=== PATIENT | female | born 1935 | race African-American/Black ===

== ENCOUNTER 2024-01-09 21:20 | Inpatient (IN) | payer MEDICARE, OTHER ==
[~2024-01-09] VITALS: Ht 172.7 cm; Wt 61.7 kg
[2024-01-09 21:20] VITALS: BP 158/85; PULSE 64; RESP 20; TEMP 98
[~2024-01-09 21:20] MED LIST: AMLO10TA4 MT; ASPI-1406 MT; ATOR10TA69 PO; LORA5SOL33 PO
[2024-01-09] MEDS ORDERED: ACETAMINOPHEN 325MG TABLET PO PRN (22:45)
[2024-01-09] MEDS ORDERED: GUAIFENESIN 200MG/10ML SUGAR FREE UDC PO PRN (22:45)
[2024-01-09] MEDS ORDERED: IPRATROPIUM/ALBUTEROL 0.5-3(2.5)MG/3ML NEB HHN PRN (22:45)
[2024-01-09] MEDS ORDERED: ONDANSETRON HCL 4MG/2ML INJ IV PRN (22:45)
[2024-01-09] MEDS ORDERED: NITROGLYCERIN 0.4MG TABLET SL SL PRN (22:45)
[2024-01-09] MEDS ORDERED: DOCUSATE SODIUM 100MG CAPSULE PO PRN (22:45)
[2024-01-09] MEDS: DEXT 5%/LACTATED RINGERS 1,000 ML IV SCH (22:45)
[2024-01-10 06:57] LABS: BASOPHILS % 0.4 % (0.0-2.0); EOSINOPHILS % 1.4 % (0.0-5.0); HEMOGLOBIN. 10.4 g/dL (12.0-16.0); LYMPHOCYTES % 21.2 % (20.0-50.0); MEAN CORPUSCULAR HEMOGLOBIN 28.4 pg (28.0-32.0); MEAN CORPUSCULAR HGB CONC 32.6 g/dL (31.0-37.0); MEAN CORPUSCULAR VOLUME 87.2 fL (81.0-99.0); MEAN PLATELET VOLUME 10.7 fl (7.4-10.4); MONOCYTES % 3.9 % (2.0-8.0); NEUTROPHILS % 73.1 % (40.0-76.0); RED BLOOD CELL COUNT 3.68 mill/uL (4.2-5.4); RED CELL DISTRIBUTION WIDTH 16.9 % (11.6-14.6); WHITE BLOOD COUNT 5.9 x1000/uL (4.5-11.0)
[2024-01-10 07:18] LABS: CARBON DIOXIDE 25 mEq/L (21-32); CHLORIDE 112 mEq/L (98-107); SODIUM 143 mEq/L (136-145)
[2024-01-10 07:19] LABS: CALCIUM 9.5 mg/dL (8.7-10.4)
[2024-01-10 07:24] LABS: CREATININE 0.9 mg/dL (0.6-1.0); GLUCOSE 101 mg/dL (70-105); UREA NITROGEN BLOOD 13 mg/dL (9-23)
[2024-01-10 07:25] LABS: ALANINE AMINOTRANSFERASE 36 IU/L (10-49)
[2024-01-10 07:26] LABS: ALBUMIN 3.4 g/dL (3.2-4.8); ASPARTATE AMINOTRANSFERASE 39 IU/L (<34); BILIRUBIN TOTAL 0.3 mg/dL (0.1-1.0); PREALBUMIN 13.5 mg/dl (10.0-40.0); PROTEIN TOTAL 6.2 g/dL (6.0-8.3)
[2024-01-10 07:40] LABS: DIFFERENTIAL COMMENT 1
[2024-01-10 07:41] LABS: PLATELET 41 x1000/uL (130-400)
[2024-01-10 08:00] VITALS: BP 152/66; PULSE 60; RESP 19; TEMP 96.4
[2024-01-10] MEDS ORDERED: MAGNESIUM/ALUMINUM HYDROXIDE/SIMETHICONE 30ML UDC PO PRN (09:00)
[2024-01-10] MEDS: FAMOTIDINE 20MG TABLET PO SCH (09:00)
[2024-01-10] MEDS: ZINC SULFATE 220 MG ( 50 ) CAPSULE PO SCH (09:00)
[2024-01-10] MEDS ORDERED: ENOXAPARIN 30MG/0.3ML SYR SUBCUT SCH (09:00)
[2024-01-10] MEDS ORDERED: ASPIRIN 81MG TABLET PO SCH (09:00)
[2024-01-10] MEDS: ASCORBIC ACID 500 MG TABLET PO SCH (09:00)
[2024-01-10 11:39] LABS: AMMONIA 19 uMol/L (<32)
[2024-01-10 20:00] VITALS: BP 154/76; PULSE 60; RESP 18; TEMP 97.1
[2024-01-11 07:16] LABS: BASOPHILS % 0.1 % (0.0-2.0); EOSINOPHILS % 1.2 % (0.0-5.0); HEMATOCRIT. 31.7 % (36.0-48.0); LYMPHOCYTES % 33.5 % (20.0-50.0); MEAN CORPUSCULAR HEMOGLOBIN 27.6 pg (28.0-32.0); MEAN CORPUSCULAR HGB CONC 31.7 g/dL (31.0-37.0); MONOCYTES % 5.6 % (2.0-8.0); NEUTROPHILS % 59.6 % (40.0-76.0); RED BLOOD CELL COUNT 3.64 mill/uL (4.2-5.4); RED CELL DISTRIBUTION WIDTH 16.4 % (11.6-14.6); WHITE BLOOD COUNT 3.8 x1000/uL (4.5-11.0)
[2024-01-11 07:23] LABS: CARBON DIOXIDE 27 mEq/L (21-32); CHLORIDE 113 mEq/L (98-107); POTASSIUM 3.9 mEq/L (3.5-5.1); SODIUM 145 mEq/L (136-145)
[2024-01-11 07:24] LABS: CALCIUM 9.5 mg/dL (8.7-10.4)
[2024-01-11 07:28] LABS: IRON 69 ug/dL (50-170)
[2024-01-11 07:29] LABS: CREATININE 1.1 mg/dL (0.6-1.0); GLUCOSE 67 mg/dL (70-105); PARTIAL THROMBOPLASTIN TIME 33.2 sec (23.4-31.0); PROTEIN TOTAL 5.6 g/dL (6.0-8.3); PROTHROMBIN TIME 10.7 sec (9.6-11.0); UREA NITROGEN BLOOD 17 mg/dL (9-23)
[2024-01-11 07:30] LABS: ALANINE AMINOTRANSFERASE 31 IU/L (10-49)
[2024-01-11 07:31] LABS: ALBUMIN 3.2 g/dL (3.2-4.8); ASPARTATE AMINOTRANSFERASE 32 IU/L (<34); BILIRUBIN TOTAL 0.3 mg/dL (0.1-1.0); TOTAL IRON BINDING CAPACITY 227 ug/dl (250-425)
[2024-01-11 07:32] LABS: THYROID STIMULATING HORMONE 2.14 uIU/mL (0.55-4.78); VITAMIN B12 SERUM 840 pg/mL (211-911)
[2024-01-11 07:33] LABS: FERRITIN 282 ng/mL (10-291); FOLIC ACID (FOLATE) SERUM 3.81 ng/mL (>5.38)
[2024-01-11 08:00] VITALS: BP 136/64; PULSE 51; RESP 14; TEMP 97
[2024-01-11 09:33] LABS: DIFFERENTIAL COMMENT 1
[2024-01-11] MEDS: FOLIC ACID 1MG TABLET PO SCH (12:02)
[2024-01-11] MEDS: LACTULOSE 20G/30ML UDC PO SCH (16:38)
[2024-01-11 20:00] VITALS: BP 141/76; PULSE 58; RESP 16; TEMP 97
[2024-01-12 08:00] VITALS: BP 111/64; PULSE 55; RESP 17; TEMP 96.8
[2024-01-12 09:06] LABS: ANTI-NUCLEAR ANTIBODIES DIRECT Negative (Negative); VITAMIN D 25-OH 26.1 ng/mL (30.0-100.0)
[2024-01-12] MEDS: MEMANTINE HCL 5MG TABLET PO SCH (12:44)
[2024-01-12 20:00] VITALS: BP 147/75; PULSE 58; RESP 18; TEMP 97
[2024-01-13 07:43] LABS: POTASSIUM 4.1 mEq/L (3.5-5.1)
[2024-01-13 07:44] LABS: BASOPHILS % 0.2 % (0.0-2.0); CALCIUM 9.9 mg/dL (8.7-10.4); EOSINOPHILS % 0.7 % (0.0-5.0); HEMATOCRIT. 31.1 % (36.0-48.0); HEMOGLOBIN. 9.9 g/dL (12.0-16.0); LYMPHOCYTES % 16.8 % (20.0-50.0); MEAN CORPUSCULAR HEMOGLOBIN 27.9 pg (28.0-32.0); MEAN CORPUSCULAR HGB CONC 31.9 g/dL (31.0-37.0); MEAN CORPUSCULAR VOLUME 87.6 fL (81.0-99.0); MONOCYTES % 4.8 % (2.0-8.0); NEUTROPHILS % 77.5 % (40.0-76.0); RED BLOOD CELL COUNT 3.55 mill/uL (4.2-5.4); RED CELL DISTRIBUTION WIDTH 16.5 % (11.6-14.6); WHITE BLOOD COUNT 3.8 x1000/uL (4.5-11.0)
[2024-01-13 07:49] LABS: CREATININE 1.1 mg/dL (0.6-1.0)
[2024-01-13 08:00] VITALS: BP 134/54; PULSE 50; RESP 17; TEMP 96.2
[2024-01-13 08:16] LABS: DIFFERENTIAL COMMENT 1
[2024-01-13 08:47] LABS: PLATELET 35 x1000/uL (130-400)
[2024-01-13 08:48] LABS: MEAN PLATELET VOLUME 12.4 fl (7.4-10.4)
[2024-01-13 17:30] LABS: CLARITY URINE CLEAR (CLEAR); COLOR URINE YELLOW (YELLOW); GLUCOSE URINE NEGATIVE (NEGATIVE); KETONES URINE NEGATIVE (NEGATIVE); LEUKOCYTE ESTERASE URINE TRACE (NEGATIVE); NITRITE URINE NEGATIVE (NEGATIVE); OCCULT BLOOD URINE NEGATIVE (NEGATIVE); PROTEIN URINE TRACE (NEGATIVE); SPECIFIC GRAVITY URINE 1.019 (1.005-1.030)
[2024-01-13] MEDS: ERGOCALCIFEROL 50000UNITS CAPSULE PO SCH (17:39)
[2024-01-13] MEDS: LACTULOSE 20G/30ML UDC PO NR (18:00)
[2024-01-13 18:13] LABS: BACTERIA URINE 1+; SQUAMOUS EPITHELIAL CELL URINE FEW /lpf (RARE/1+)
[2024-01-13 18:14] LABS: RBC URINE 0-2 /hpf (0-2); WBC URINE 0-2 /hpf (0-2)
[2024-01-13 20:00] VITALS: BP 146/69; PULSE 60; RESP 18; TEMP 96.5
[2024-01-14 08:00] VITALS: BP 159/89; PULSE 58; RESP 17; TEMP 97.3
[2024-01-14] MEDS ORDERED: LACTULOSE 20G/30ML UDC PO PRN (08:00)
[2024-01-14] MEDS: CLONIDINE 0.1MG TABLET PO PRN (08:55)
[2024-01-14 19:55] LABS: PLATELET 34 x1000/uL (130-400)
[2024-01-14 20:00] VITALS: BP 153/66; PULSE 51; RESP 18; TEMP 97
[2024-01-15 08:00] VITALS: BP 132/58; PULSE 53; RESP 16; TEMP 96.3
[2024-01-15 20:00] VITALS: BP 150/78; PULSE 53; RESP 18; TEMP 90
[2024-01-16 06:49] LABS: CHLORIDE 111 mEq/L (98-107); POTASSIUM 4.8 mEq/L (3.5-5.1); SODIUM 145 mEq/L (136-145)
[2024-01-16 06:50] LABS: CALCIUM 9.7 mg/dL (8.7-10.4); CARBON DIOXIDE 29 mEq/L (21-32)
[2024-01-16 06:55] LABS: CREATININE 0.9 mg/dL (0.6-1.0); GLUCOSE 84 mg/dL (70-105)
[2024-01-16 06:56] LABS: UREA NITROGEN BLOOD 32 mg/dL (9-23)
[2024-01-16 06:57] LABS: BASOPHILS % 0.1 % (0.0-2.0); HEMATOCRIT. 32.1 % (36.0-48.0); HEMOGLOBIN. 10.1 g/dL (12.0-16.0); LYMPHOCYTES % 17.5 % (20.0-50.0); MEAN CORPUSCULAR HEMOGLOBIN 27.4 pg (28.0-32.0); MEAN CORPUSCULAR HGB CONC 31.5 g/dL (31.0-37.0); MEAN CORPUSCULAR VOLUME 86.8 fL (81.0-99.0); MONOCYTES % 4.9 % (2.0-8.0); NEUTROPHILS % 76.5 % (40.0-76.0); RED BLOOD CELL COUNT 3.69 mill/uL (4.2-5.4); RED CELL DISTRIBUTION WIDTH 16.7 % (11.6-14.6); WHITE BLOOD COUNT 3.8 x1000/uL (4.5-11.0)
[2024-01-16 08:00] VITALS: BP 125/65; PULSE 66; RESP 18; TEMP 97.2
[2024-01-16 09:17] LABS: PLATELET 29 x1000/uL (130-400)
[2024-01-16 09:18] LABS: DIFFERENTIAL COMMENT 1
[2024-01-16] MEDS: DEXAMETHASONE 4MG TABLET PO SCH (13:56)
[2024-01-16 20:00] VITALS: BP 134/80; PULSE 58; RESP 20; TEMP 96.6
[2024-01-16 20:30] VITALS: BP 134/80; PULSE 58; TEMP 96.5; O2SAT 95
== END 2024-01-16 20:50 | disposition short-term general hospital (02) | DRG 70 ==
PROVIDERS: ADMIT Physical Medicine & Rehabilitation Spinal Cord Injury Medicine; ATTEND Internal Medicine
DX: G93.41 Metabolic encephalopathy (principal); A41.9 Sepsis, unspecified organism; N17.0 Acute kidney failure with tubular necrosis; I21.4 Non-ST elevation (NSTEMI) myocardial infarction; I13.0 Hypertensive heart and chronic kidney disease with heart failure and stage 1 through stage 4 chronic kidney disease, or unspecified chronic kidney disease; N39.0 Urinary tract infection, site not specified; D61.818 Other pancytopenia; N17.9 Acute kidney failure, unspecified; F03.93 Unspecified dementia, unspecified severity, with mood disturbance; D69.3 Immune thrombocytopenic purpura; I50.22 Chronic systolic (congestive) heart failure; F03.90 Unspecified dementia, unspecified severity, without behavioral disturbance, psychotic disturbance, mood disturbance, and anxiety; I50.9 Heart failure, unspecified; I25.10 Atherosclerotic heart disease of native coronary artery without angina pectoris; J98.4 Other disorders of lung; M81.0 Age-related osteoporosis without current pathological fracture; N18.9 Chronic kidney disease, unspecified; E53.8 Deficiency of other specified B group vitamins; E55.9 Vitamin D deficiency, unspecified; E78.00 Pure hypercholesterolemia, unspecified; R32 Unspecified urinary incontinence; R62.7 Adult failure to thrive; M62.50 Muscle wasting and atrophy, not elsewhere classified, unspecified site; R26.2 Difficulty in walking, not elsewhere classified; R41.89 Other symptoms and signs involving cognitive functions and awareness; R53.81 Other malaise; R91.8 Other nonspecific abnormal finding of lung field; Z86.73 Personal history of transient ischemic attack (TIA), and cerebral infarction without residual deficits; Z91.81 History of falling; I25.2 Old myocardial infarction
CPT/HCPCS: 36415; 76705; 80048; 80053; 81003; 82140; 82306; 82607; 82728; 82746; 83036; 83540; 83550; 84134; 84443; 85025; 85384; 86038; 86705; 92523; 92610; 97110; 97112; 97150; 97162; 97166; 97530; 97535; A4565; A6261; J7121; J8540

== ENCOUNTER 2024-01-16 22:06 | Inpatient (IN) | payer MEDICARE, OTHER ==
[~2024-01-16] VITALS: Ht 182.9 cm; Wt 56.7 kg
[2024-01-16] MEDS ORDERED: CLONIDINE 0.1MG TABLET PO PRN (23:30)
[2024-01-16] MEDS ORDERED: DOCUSATE SODIUM 100MG CAPSULE PO PRN (23:30)
[2024-01-16] MEDS ORDERED: GUAIFENESIN 200MG/10ML SUGAR FREE UDC PO PRN (23:30)
[2024-01-16] MEDS ORDERED: ONDANSETRON HCL 4MG/2ML INJ IV PRN (23:30)
[2024-01-16] MEDS ORDERED: ACETAMINOPHEN 325MG TABLET PO PRN ×2 (23:30)
[2024-01-17] MEDS ORDERED: IPRATROPIUM/ALBUTEROL 0.5-3(2.5)MG/3ML NEB HHN PRN
[2024-01-17] MEDS: DEXT 5%/0.45% NACL 1000ML 1,000 ML IV SCH (00:43)
[2024-01-17 01:54] VITALS: BP 138/88; PULSE 58; RESP 18; TEMP 98.6
[2024-01-17 04:00] VITALS: BP 127/73; PULSE 58; RESP 18; TEMP 97.2
[2024-01-17 07:43] LABS: HEMATOCRIT 30.1 % (36.0-48.0); HEMOGLOBIN 9.6 g/dL (12.0-16.0); MEAN CORPUSCULAR HEMOGLOBIN 27.9 pg (28.0-32.0); MEAN CORPUSCULAR VOLUME 87.4 fL (81.0-99.0); RED BLOOD CELL COUNT 3.44 mill/uL (4.2-5.4); WHITE BLOOD COUNT 6.4 x1000/uL (4.5-11.0)
[2024-01-17 07:49] LABS: CARBON DIOXIDE 26 mEq/L (21-32); CHLORIDE 113 mEq/L (98-107); POTASSIUM 4.7 mEq/L (3.5-5.1); SODIUM 145 mEq/L (136-145)
[2024-01-17 07:50] LABS: CALCIUM 9.6 mg/dL (8.7-10.4)
[2024-01-17 07:51] LABS: CREATINE KINASE MB FRACTION 2.6 ng/mL (0.5-3.6)
[2024-01-17 07:55] LABS: GLUCOSE 131 mg/dL (70-105); UREA NITROGEN BLOOD 40 mg/dL (9-23)
[2024-01-17 08:01] LABS: TROPONIN I HIGH SENSITIVITY 68 ng/L (3.0-34)
[2024-01-17 08:18] VITALS: BP 120/60; PULSE 56; RESP 18; TEMP 96.6
[2024-01-17] MEDS ORDERED: ENOXAPARIN 40MG/0.4ML SYR SUBCUT SCH (09:00)
[2024-01-17] MEDS: ASPIRIN 81MG EC TABLET PO SCH (09:00)
[2024-01-17] MEDS: AMLODIPINE 10MG TABLET PO SCH (09:00)
[2024-01-17 12:10] VITALS: BP 99/50; PULSE 52; RESP 18; TEMP 97.8
[2024-01-17] MEDS: ERGOCALCIFEROL 50000UNITS CAPSULE PO SCH (12:30)
[2024-01-17 16:06] VITALS: BP 116/68; PULSE 48; RESP 20; TEMP 97.8
[2024-01-17 16:57] LABS: CREATINE KINASE MB FRACTION 2.5 ng/mL (0.5-3.6)
[2024-01-17 20:00] VITALS: BP 124/68; PULSE 55; RESP 21; TEMP 96.8
[2024-01-17] MEDS: ATORVASTATIN CALCIUM 10MG TABLET PO SCH (21:30)
[2024-01-18] VITALS: BP 152/60; PULSE 60; RESP 20; TEMP 98
[2024-01-18 04:00] VITALS: BP 157/69; PULSE 61; RESP 18; TEMP 96.2
[2024-01-18 08:00] VITALS: BP 110/53; PULSE 50; RESP 20; TEMP 99
[2024-01-18] MEDS: FOLIC ACID 1MG TABLET PO SCH (08:55)
[2024-01-18 11:14] LABS: AMMONIA < 17 uMol/L (<32)
[2024-01-18 11:18] LABS: T4 FREE 1.1 ng/dL (0.89-1.76); THYROID STIMULATING HORMONE 4.55 uIU/mL (0.55-4.78)
[2024-01-18 11:35] LABS: VITAMIN B12 SERUM 841 pg/mL (211-911)
[2024-01-18 11:39] LABS: FOLIC ACID (FOLATE) SERUM 5.42 ng/mL (>5.38)
[2024-01-18 12:00] VITALS: BP 101/40; PULSE 54; RESP 20; TEMP 98.1
[2024-01-18 16:00] VITALS: BP 132/54; PULSE 64; RESP 18; TEMP 97.5
[2024-01-18 20:00] VITALS: BP 108/53; PULSE 57; RESP 18; TEMP 97.2
[2024-01-19] VITALS: BP 140/66; PULSE 64; RESP 20; TEMP 97.4
[2024-01-19 04:00] VITALS: BP 110/80; PULSE 65; RESP 17; RESP 18; TEMP 97.2
[2024-01-19 08:00] VITALS: BP 134/69; PULSE 57; RESP 20; TEMP 97.1
[2024-01-19] MEDS: THIAMINE HCL 100MG TABLET PO SCH (09:12)
[2024-01-19] MEDS: PIPERACILLIN/TAZO 3.375G/50ML 50 ML IV SCH (09:37)
[2024-01-19 11:58] LABS: CARBON DIOXIDE 27 mEq/L (21-32); CHLORIDE 113 mEq/L (98-107); POTASSIUM 4.7 mEq/L (3.5-5.1); SODIUM 145 mEq/L (136-145)
[2024-01-19 11:59] LABS: CALCIUM 9.3 mg/dL (8.7-10.4)
[2024-01-19 12:00] VITALS: BP 106/59; PULSE 68; RESP 20; TEMP 97.2
[2024-01-19 12:01] LABS: BASOPHILS % 0.3 % (0.0-2.0); EOSINOPHILS % 0.6 % (0.0-5.0); HEMATOCRIT. 28.1 % (36.0-48.0); HEMOGLOBIN. 9.1 g/dL (12.0-16.0); LYMPHOCYTES % 14.7 % (20.0-50.0); MEAN CORPUSCULAR HEMOGLOBIN 28.2 pg (28.0-32.0); MEAN CORPUSCULAR HGB CONC 32.3 g/dL (31.0-37.0); MEAN CORPUSCULAR VOLUME 87.2 fL (81.0-99.0); MONOCYTES % 4.6 % (2.0-8.0); NEUTROPHILS % 79.8 % (40.0-76.0); RED BLOOD CELL COUNT 3.22 mill/uL (4.2-5.4); RED CELL DISTRIBUTION WIDTH 16.7 % (11.6-14.6); WHITE BLOOD COUNT 4.7 x1000/uL (4.5-11.0)
[2024-01-19 12:03] LABS: DIFFERENTIAL COMMENT 1; GLUCOSE 98 mg/dL (70-105)
[2024-01-19 12:04] LABS: ALANINE AMINOTRANSFERASE 75 IU/L (10-49); UREA NITROGEN BLOOD 43 mg/dL (9-23)
[2024-01-19 12:05] LABS: ASPARTATE AMINOTRANSFERASE 73 IU/L (<34)
[2024-01-19 12:06] LABS: BILIRUBIN TOTAL 0.2 mg/dL (0.1-1.0); PROTEIN TOTAL 5.1 g/dL (6.0-8.3)
[2024-01-19 12:07] LABS: ADD RBC MORPHOLOGY YES
[2024-01-19 14:31] LABS: ANISOCYTOSIS 1+; PLATELET 42 x1000/uL (130-400); PLATELET ESTIMATE MARKEDLY DECREASED
[2024-01-19 16:00] VITALS: BP 108/45; PULSE 57; RESP 20; TEMP 97.3
[2024-01-19 20:00] VITALS: BP 122/59; PULSE 63; RESP 17; TEMP 98
[2024-01-20] VITALS: BP 108/65; PULSE 61; RESP 16; TEMP 98
[2024-01-20 04:00] VITALS: BP 132/74; PULSE 70; RESP 18; TEMP 97.8
[2024-01-20 08:00] VITALS: BP 100/62; PULSE 59; RESP 20; TEMP 96
[2024-01-20 12:00] VITALS: BP 90/57; PULSE 62; RESP 18; TEMP 97.4
[2024-01-20 16:00] VITALS: BP 131/65; PULSE 70; RESP 18; TEMP 98
[2024-01-20 20:00] VITALS: BP 124/58; PULSE 66; RESP 18; TEMP 97.8
[2024-01-20] MEDS: LEVOFLOXACIN 500MG PREMIX 100 ML IV SCH (20:49)
[2024-01-21] VITALS (7 sets, daily range): BP systolic 108–155; BP diastolic 53–65; PULSE 61–80; RESP 16–20; TEMP 97.6–98.9
[2024-01-21 06:46] LABS: CARBON DIOXIDE 28 mEq/L (21-32); CHLORIDE 112 mEq/L (98-107); HEMATOCRIT 27.2 % (36.0-48.0); HEMOGLOBIN 8.7 g/dL (12.0-16.0); MEAN CORPUSCULAR HGB CONC 32.1 g/dL (31.0-37.0); MEAN CORPUSCULAR VOLUME 87.2 fL (81.0-99.0); POTASSIUM 4.9 mEq/L (3.5-5.1); RED BLOOD CELL COUNT 3.12 mill/uL (4.2-5.4); RED CELL DISTRIBUTION WIDTH 16.7 % (11.6-14.6); SODIUM 146 mEq/L (136-145); WHITE BLOOD COUNT 4.7 x1000/uL (4.5-11.0)
[2024-01-21 06:47] LABS: CALCIUM 9.1 mg/dL (8.7-10.4)
[2024-01-21 06:52] LABS: GLUCOSE 127 mg/dL (70-105); UREA NITROGEN BLOOD 37 mg/dL (9-23)
[2024-01-21 08:07] LABS: PLATELET 36 x1000/uL (130-400)
[2024-01-21] MEDS: AMLODIPINE 5MG TABLET PO SCH (09:24)
[2024-01-21] MEDS: LEVOFLOXACIN 250MG PREMIX 50 ML IV SCH (12:41)
[2024-01-22] VITALS: BP 160/66; PULSE 61; RESP 18; TEMP 97.9
[2024-01-22 04:00] VITALS: BP 151/62; PULSE 63; RESP 20; TEMP 98.2
[2024-01-22 06:52] LABS: HEMATOCRIT 28.3 % (36.0-48.0); HEMOGLOBIN 8.9 g/dL (12.0-16.0); MEAN CORPUSCULAR HEMOGLOBIN 27.6 pg (28.0-32.0); MEAN CORPUSCULAR HGB CONC 31.4 g/dL (31.0-37.0); MEAN CORPUSCULAR VOLUME 87.8 fL (81.0-99.0); RED BLOOD CELL COUNT 3.23 mill/uL (4.2-5.4); RED CELL DISTRIBUTION WIDTH 16.7 % (11.6-14.6); WHITE BLOOD COUNT 4.4 x1000/uL (4.5-11.0)
[2024-01-22 06:56] LABS: CHLORIDE 112 mEq/L (98-107); POTASSIUM 5.2 mEq/L (3.5-5.1); SODIUM 146 mEq/L (136-145)
[2024-01-22 06:57] LABS: CALCIUM 9.4 mg/dL (8.7-10.4); CARBON DIOXIDE 31 mEq/L (21-32)
[2024-01-22 07:02] LABS: CREATININE 0.8 mg/dL (0.6-1.0); GLUCOSE 111 mg/dL (70-105); UREA NITROGEN BLOOD 36 mg/dL (9-23)
[2024-01-22 08:00] VITALS: BP 169/83; PULSE 60; RESP 18; TEMP 97
[2024-01-22 12:00] VITALS: BP 125/71; PULSE 59; RESP 18; TEMP 96
[2024-01-22 14:29] LABS: PLATELET 35 x1000/uL (130-400)
[2024-01-22 16:00] VITALS: BP 136/70; PULSE 58; RESP 20; TEMP 97
[2024-01-22 20:00] VITALS: BP 127/68; PULSE 62; RESP 18; TEMP 97.4
[2024-01-22 20:20] LABS: HEMATOCRIT 26.7 % (36.0-48.0); HEMOGLOBIN 8.5 g/dL (12.0-16.0); MEAN CORPUSCULAR HEMOGLOBIN 27.8 pg (28.0-32.0); MEAN CORPUSCULAR HGB CONC 31.8 g/dL (31.0-37.0); MEAN CORPUSCULAR VOLUME 87.3 fL (81.0-99.0); RED BLOOD CELL COUNT 3.06 mill/uL (4.2-5.4); RED CELL DISTRIBUTION WIDTH 16.6 % (11.6-14.6); WHITE BLOOD COUNT 5.5 x1000/uL (4.5-11.0)
[2024-01-22 20:23] LABS: PLATELET 37 x1000/uL (130-400)
[2024-01-23] VITALS (7 sets, daily range): BP systolic 115–158; BP diastolic 64–115; PULSE 50–100; RESP 18–20; TEMP 96.4–97.8
[2024-01-23 08:05] LABS: CARBON DIOXIDE 28 mEq/L (21-32); CHLORIDE 111 mEq/L (98-107); POTASSIUM 5.6 mEq/L (3.5-5.1); SODIUM 145 mEq/L (136-145)
[2024-01-23 08:06] LABS: CALCIUM 9.4 mg/dL (8.7-10.4)
[2024-01-23 08:11] LABS: CREATININE 0.8 mg/dL (0.6-1.0); GLUCOSE 72 mg/dL (70-105); UREA NITROGEN BLOOD 29 mg/dL (9-23)
[2024-01-23] MEDS ORDERED: SODIUM POLYSTYRENE SULFONATE 15 G/60 ML BOT PO ONE (09:30)
[2024-01-23] MEDS: SODIUM ZIRCONIUM CYCLOSILICATE 10GM/PACKET PO NR ×2 (09:42→14:45)
[2024-01-23] MEDS ORDERED: FENTANYL CITRATE/PF 50MCG/ML 2ML VIAL ONE ×2 (13:05→13:19)
[2024-01-23] MEDS ORDERED: VERAPAMIL HCL 2.5 MG/1 ML 2ML VIAL IV ONE (13:05)
[2024-01-23] MEDS ORDERED: MIDAZOLAM HCL 2 MG/2 ML VIAL ONE ×2 (13:05→13:19)
[2024-01-23] MEDS ORDERED: IODIXANOL 320MG/ML 100 ML BOTTLE IV ONE ×2 (13:06→13:19)
[2024-01-23] MEDS ORDERED: LIDOCAINE HCL 1% 20ML VIAL ONE ×2 (13:06→13:19)
[2024-01-23] MEDS ORDERED: DIPHENHYDRAMINE 50MG/ML VIAL ONE (13:16)
[2024-01-23] MEDS ORDERED: HEPARIN 1000 UNITS/ML 10ML ONE (13:19)
[2024-01-23] MEDS: LEVOFLOXACIN 750MG PREMIX 150 ML IV SCH (13:31)
[2024-01-23 17:17] LABS: POTASSIUM 4.7 mEq/L (3.5-5.1)
[2024-01-24] VITALS: BP 133/54; PULSE 53; RESP 20; TEMP 96
[2024-01-24 04:00] VITALS: BP 129/67; PULSE 55; RESP 19; TEMP 96.2
[2024-01-24 07:59] LABS: CALCIUM 9.3 mg/dL (8.7-10.4); CARBON DIOXIDE 29 mEq/L (21-32); CHLORIDE 110 mEq/L (98-107); POTASSIUM 4.5 mEq/L (3.5-5.1); SODIUM 143 mEq/L (136-145)
[2024-01-24 08:00] VITALS: BP 129/74; PULSE 52; RESP 18; TEMP 97
[2024-01-24 08:04] LABS: CREATININE 0.7 mg/dL (0.6-1.0); GLUCOSE 114 mg/dL (70-105); UREA NITROGEN BLOOD 23 mg/dL (9-23)
[2024-01-24 08:44] LABS: HEMATOCRIT. 26.5 % (36.0-48.0); HEMOGLOBIN. 8.4 g/dL (12.0-16.0); MEAN CORPUSCULAR HEMOGLOBIN 27.6 pg (28.0-32.0); MEAN CORPUSCULAR HGB CONC 31.5 g/dL (31.0-37.0); MEAN CORPUSCULAR VOLUME 87.5 fL (81.0-99.0); MEAN PLATELET VOLUME 10.6 fl (7.4-10.4); RED BLOOD CELL COUNT 3.03 mill/uL (4.2-5.4); RED CELL DISTRIBUTION WIDTH 16.8 % (11.6-14.6); WHITE BLOOD COUNT 6.5 x1000/uL (4.5-11.0)
[2024-01-24 09:50] LABS: DIFFERENTIAL COMMENT 1; PLATELET 44 x1000/uL (130-400)
[2024-01-24 12:00] VITALS: BP 11/63; PULSE 64; RESP 18; TEMP 97.1
[2024-01-24 13:42] LABS: PLATELET ESTIMATE MARKEDLY DECREASED
[2024-01-24 13:43] LABS: ANISOCYTOSIS 1+
[2024-01-24 13:44] LABS: MICROCYTOSIS 1+
[2024-01-24 16:00] VITALS: BP 143/74; PULSE 59; RESP 18; TEMP 97
[2024-01-24 20:00] VITALS: BP 95/51; PULSE 61; RESP 20; TEMP 96.4
[2024-01-25] VITALS: BP 152/84; PULSE 59; RESP 21; TEMP 96.8
[2024-01-25 04:00] VITALS: BP 125/79; PULSE 61; RESP 20; TEMP 98.2
[2024-01-25 09:23] LABS: CHLORIDE 112 mEq/L (98-107); POTASSIUM 4.3 mEq/L (3.5-5.1); SODIUM 144 mEq/L (136-145)
[2024-01-25 09:24] LABS: CALCIUM 9.5 mg/dL (8.7-10.4); CARBON DIOXIDE 31 mEq/L (21-32)
[2024-01-25 09:25] LABS: HEMATOCRIT 26.1 % (36.0-48.0); HEMOGLOBIN 8.4 g/dL (12.0-16.0); MEAN CORPUSCULAR HEMOGLOBIN 27.9 pg (28.0-32.0); MEAN CORPUSCULAR HGB CONC 32.1 g/dL (31.0-37.0); PLATELET 55 x1000/uL (130-400); RED CELL DISTRIBUTION WIDTH 16.1 % (11.6-14.6); WHITE BLOOD COUNT 7.1 x1000/uL (4.5-11.0)
[2024-01-25 09:29] LABS: CREATININE 0.8 mg/dL (0.6-1.0); GLUCOSE 97 mg/dL (70-105); UREA NITROGEN BLOOD 24 mg/dL (9-23)
== END 2024-01-25 14:45 | DRG 91 ==
LOC: 8WST 22:06
PROVIDERS: ADMIT Internal Medicine; ATTEND Internal Medicine
PROC: 4A10X4Z Monitoring of Central Nervous Electrical Activity, External Approach (ICD-10-PCS; principal; 2024-01-21)
DX: G92.8 Other toxic encephalopathy (principal); E43 Unspecified severe protein-calorie malnutrition; I21.4 Non-ST elevation (NSTEMI) myocardial infarction; D61.818 Other pancytopenia; N17.9 Acute kidney failure, unspecified; I50.22 Chronic systolic (congestive) heart failure; N39.0 Urinary tract infection, site not specified; Z68.1 Body mass index [BMI] 19.9 or less, adult; E11.9 Type 2 diabetes mellitus without complications; E55.9 Vitamin D deficiency, unspecified; E53.8 Deficiency of other specified B group vitamins; F03.90 Unspecified dementia, unspecified severity, without behavioral disturbance, psychotic disturbance, mood disturbance, and anxiety; I11.0 Hypertensive heart disease with heart failure; D63.8 Anemia in other chronic diseases classified elsewhere; E87.5 Hyperkalemia; I07.1 Rheumatic tricuspid insufficiency; I25.10 Atherosclerotic heart disease of native coronary artery without angina pectoris; I27.20 Pulmonary hypertension, unspecified; Z86.73 Personal history of transient ischemic attack (TIA), and cerebral infarction without residual deficits
CPT/HCPCS: 36415; 70551; 71045; 80048; 80053; 82140; 82553; 82607; 82746; 83036; 84132; 84134; 84145; 84439; 84443; 84481; 84484; 85025; 85027; 92610; 93005; 97166; J1200; J1644; J1956; J2250; J2543; J3010; J3490; Q9967

== ENCOUNTER 2024-04-19 14:05 | Inpatient (IN) | payer MEDICARE, OTHER ==
[~2024-04-19] VITALS: Ht 165.1 cm; Wt 60.3 kg
[~2024-04-19 14:05] MED LIST changes: -AMLO10TA4 MT; +AMLO5TAB88 PO; +ASPI-1160 PO; -ASPI-1406 MT; +CLON0.1T PO; +ERGO200D PO; +FLUT1BLS12 IH; +FOLI-43 PO; -LORA5SOL33 PO; +THIA50TA12 PO
[2024-04-19 14:08] VITALS: O2SAT 100
[2024-04-19] MEDS: LACTATED RINGERS 1,000 ML IV ONE (14:15)
[2024-04-19 15:00] LABS: HEMATOCRIT. 27.6 % (36.0-48.0); HEMOGLOBIN. 8.2 g/dL (12.0-16.0); MEAN CORPUSCULAR HEMOGLOBIN 26.8 pg (28.0-32.0); MEAN CORPUSCULAR HGB CONC 29.8 g/dL (31.0-37.0); MEAN CORPUSCULAR VOLUME 89.7 fL (81.0-99.0); MEAN PLATELET VOLUME 11.1 fl (7.4-10.4); RED BLOOD CELL COUNT 3.07 mill/uL (4.2-5.4); RED CELL DISTRIBUTION WIDTH 19.5 % (11.6-14.6); WHITE BLOOD COUNT 8.2 x1000/uL (4.5-11.0)
[2024-04-19 15:11] LABS: INR 1.2; PROTHROMBIN TIME 13.5 sec (9.6-11.0)
[2024-04-19 15:21] LABS: DIFFERENTIAL COMMENT 1
[2024-04-19 15:24] LABS: CHLORIDE 125 mEq/L (98-107); SODIUM 151 mEq/L (136-145)
[2024-04-19 15:25] LABS: CARBON DIOXIDE 19 mEq/L (21-32)
[2024-04-19] MEDS: CEFTRIAXONE 1GM/50ML 50 ML IV ONE (15:26)
[2024-04-19] MEDS: AZITHROMYCIN 500MG/250ML 250 ML IV ONE (15:26)
[2024-04-19 15:29] LABS: PLATELET 23 x1000/uL (130-400)
[2024-04-19 15:30] LABS: CREATININE 1.4 mg/dL (0.6-1.0); GLUCOSE 103 mg/dL (70-105); UREA NITROGEN BLOOD 17 mg/dL (9-23)
[2024-04-19 15:32] LABS: LACTIC ACID 2.1 mmol/L (0.4-2.0)
[2024-04-19 15:35] LABS: TROPONIN I HIGH SENSITIVITY 119 ng/L (3.0-34)
[2024-04-19 16:25] LABS: ANISOCYTOSIS 1+; PLATELET ESTIMATE MARKEDLY DECREASED
[2024-04-19] MEDS: SODIUM CHLORIDE 0.9% 500 ML IV ONE (20:44)
[2024-04-19] MEDS ORDERED: NOREPINEPHRINE 8 MG in DEXT 5% WATER 242 ML IV PRN (22:15)
[2024-04-19] MEDS: NOREPINEPHRINE 8MG/250ML PMX 250 ML IV PRN (23:08)
[2024-04-20] VITALS (14 sets, daily range): BP systolic 50–150; BP diastolic 34–92; PULSE 50–72; RESP 20–21; TEMP 35.0028–35.028; O2SAT 100
[2024-04-20 00:10] LABS: BG CARBOXYHEMOGLOBIN 1.2 % (0.5-1.5); BG DEOXYHEMOGLOBIN 0.5 % (0.0-5.0); BG FRACTION INSPIRED OXYGEN 100; BG HCO3 ACT 17.4 mmol/L (21.0-28.0); BG METHEMOGLOBIN 0.1 % (0.5-1.5); BG OXYGEN SATURATION 99.5 % (94.0-98.0); BG OXYHEMOGLOBIN 98.2 % (94.0-98.0); BG PCO2 40.6 mmHg (32.0-45.0); BG PH 7.251 (7.350-7.450); BG PO2 213.2 mmHg (83.0-108.0); BG SAMPLE SITE LEFT RADIAL; BG TOTAL HEMOGLOBIN 7.5 g/dL (12.0-16.0); BG VENT MODE MASK - NRB
[2024-04-20] MEDS ORDERED: VASOPRESSIN 20 UNIT in SODIUM CHLORIDE 0.9% 99 ML IV STA (10:56)
[2024-04-20] MEDS ORDERED: ONDANSETRON HCL 4MG/2ML INJ IV PRN (11:30)
[2024-04-20] MEDS ORDERED: ACETAMINOPHEN 325MG TABLET PO PRN (11:30)
[2024-04-20] MEDS: VASOPRESSIN 20 UNIT in SODIUM CHLORIDE 0.9% 99 ML IV PRN (11:40)
[2024-04-20] MEDS: SODIUM CHLORIDE 0.9% 1,000 ML IV SCH (11:41)
[2024-04-20] MEDS ORDERED: VANCOMYCIN 750MG/250ML IV SCH (12:00)
[2024-04-20] MEDS: DEXTROSE 50% WATER 50ML SYRINGE IV PRN (13:53)
[2024-04-20] MEDS ORDERED: DEXTROSE 50% WATER 50ML SYRINGE IV PRN (14:00)
[2024-04-20] MEDS ORDERED: LORAZEPAM 2MG/ML INJ IV PRN (14:00)
[2024-04-20 14:22] LABS: BG BASE EXCESS -17.9 mmol/L (-2.0-3.0); BG CARBOXYHEMOGLOBIN 0.7 % (0.5-1.5); BG DEOXYHEMOGLOBIN 0.1 % (0.0-5.0); BG HCO3 ACT 11.9 mmol/L (21.0-28.0); BG OXYGEN SATURATION 99.9 % (94.0-98.0); BG OXYHEMOGLOBIN 99.2 % (94.0-98.0); BG PCO2 47.4 mmHg (32.0-45.0); BG PH 7.016 (7.350-7.450); BG PO2 297.6 mmHg (83.0-108.0); BG SAMPLE SITE LEFT RADIAL; BG TOTAL HEMOGLOBIN 7.4 g/dL (12.0-16.0); BG VENT MODE VENT - AC
[2024-04-20] MEDS ORDERED: VASOPRESSIN 20 UNIT in SODIUM CHLORIDE 0.9% 99 ML IV PRN (15:00)
[2024-04-20] MEDS ORDERED: NOREPINEPHRINE 32 MG in DEXT 5% WATER 218 ML IV PRN (15:00)
[2024-04-20] MEDS: MORPHINE SULFATE 250 MG in DEXT 5% WATER 225 ML IV PRN (15:29)
[2024-04-20] MEDS: PIPERACILLIN/TAZO 3.375G/50ML 50 ML IV SCH (15:55)
[2024-04-20] MEDS: INSULIN LISPRO 100 UNITS/ML SUBCUT SCH (15:56)
[2024-04-20] MEDS: BLOOD SUGAR DIAGNOSTIC STRIP TEST SCH (15:56)
[2024-04-20] MEDS: VANCOMYCIN 750MG/250ML IV SCH (15:56)
[2024-04-20] MEDS: DEXTROSE 10% WATER 500 ML IV NR (15:56)
[2024-04-20] MEDS ORDERED: BLOOD SUGAR DIAGNOSTIC STRIP TEST SCH (16:30)
[2024-04-20] MEDS ORDERED: ZOLPIDEM TARTRATE 5MG TABLET PO PRN (21:00)
[2024-04-21] MEDS ORDERED: PIPERACILLIN/TAZO 3.375G/50ML 50 ML IV SCH (06:00)
== END 2024-04-20 16:25 | DRG 871 ==
LOC: ER 14:14 → MICUSO 14:39 → EDBEDREQTM 14:42 → EDBEDREQ 14:42 → EDBEDREQSVC 04-20 08:02
PROVIDERS: ADMIT Family Medicine Adult Medicine; ATTEND Family Medicine Adult Medicine
PROC: 02HV33Z Insertion of Infusion Device into Superior Vena Cava, Percutaneous Approach (ICD-10-PCS; 2024-04-19)
PROC: B548ZZA Ultrasonography of Superior Vena Cava, Guidance (ICD-10-PCS; 2024-04-19)
PROC: 0BH17EZ Insertion of Endotracheal Airway into Trachea, Via Natural or Artificial Opening (ICD-10-PCS; principal; 2024-04-20)
PROC: 5A1935Z Respiratory Ventilation, Less than 24 Consecutive Hours (ICD-10-PCS; 2024-04-20)
DX: A41.9 Sepsis, unspecified organism (principal); E43 Unspecified severe protein-calorie malnutrition; G93.41 Metabolic encephalopathy; R65.21 Severe sepsis with septic shock; J96.01 Acute respiratory failure with hypoxia; J69.0 Pneumonitis due to inhalation of food and vomit; I21.4 Non-ST elevation (NSTEMI) myocardial infarction; E87.0 Hyperosmolality and hypernatremia; D53.9 Nutritional anemia, unspecified; Z68.22 Body mass index [BMI] 22.0-22.9, adult; Z66 Do not resuscitate; E11.649 Type 2 diabetes mellitus with hypoglycemia without coma; D69.6 Thrombocytopenia, unspecified; E86.1 Hypovolemia; I11.0 Hypertensive heart disease with heart failure; I50.9 Heart failure, unspecified; F03.C0 Unspecified dementia, severe, without behavioral disturbance, psychotic disturbance, mood disturbance, and anxiety; E78.00 Pure hypercholesterolemia, unspecified; Z86.73 Personal history of transient ischemic attack (TIA), and cerebral infarction without residual deficits; Z87.440 Personal history of urinary (tract) infections; Z91.148 Patient's other noncompliance with medication regimen for other reason; Z51.5 Encounter for palliative care
CPT/HCPCS: 31500; 36415; 36600; 71045; 80048; 82375; 82805; 82962; 83605; 83735; 83880; 84484; 85025; 86850; 86900; 93005; 93970; 94003; 99291; J0456; J0696; J2270; J3490; J7050; J7060; J7120